=== PATIENT | female | born 1955 | race Caucasian/White ===

== ENCOUNTER 2016-12-25 09:04 | Day surgery (SDC) | payer OTHER ==
[~2016-12-25] VITALS: Ht 157.5 cm; Wt 67.7 kg
[~2016-12-25 09:04] MED LIST: CIPR500T4 PO; HYDR-3498 PO; MAGN296S40 PO; METR500T PO
[2016-12-25 09:42] VITALS: Ht 157.5 cm; Wt 67.7 kg
[2016-12-25] MEDS ORDERED: OMEG300C3 PO (09:49)
[2016-12-25] MEDS ORDERED: CHOL100062 PO (09:49)
[2016-12-25 10:03] VITALS: BP 115/56; PULSE 73; RESP 16
[2016-12-25] MEDS ORDERED: FENTAnyl 50 MCG/ML VIAL ONE (11:09)
[2016-12-25] MEDS ORDERED: MIDAZOLAM 1 MG/ML 2 ML INJ ONE ×2 (11:09)
[2016-12-25 11:32] VITALS: BP 92/56; PULSE 59; RESP 10
--- NOTE | 2016-12-25 13:47 | GILP ---
DATE OF PROCEDURE: NAME OF PROCEDURE: Colonoscopy. SURGEON: Gil Porter MD PREOPERATIVE DIAGNOSIS: Screening colonoscopy. POSTOPERATIVE DIAGNOSES: 1. Colonoscopy all the way to the cecum. 2. Diverticulosis of the colon. 3. Internal hemorrhoids. 4. No colon neoplasm was identified. INDICATION FOR THE PROCEDURE: Ms. Debbi Seay is a 61-year-old female patient who was scheduled for screening colonoscopy. The procedure and possible complications are well explained to the patient, she understood and conse nted to the procedure. DESCRIPTION OF PROCEDURE: Under the influence of fentanyl and Versed, the colonoscope was carefully introduced in the rectum and under direct vision, it was advanced all the way to the cecum. FINDINGS: The patient had diverticulosis of the colon. She also had internal hemorrhoids. No colo n neoplasm was identified. She tolerated the procedure very well and there was no complication from the procedure. At the end of the procedures, she was awake with stable vital signs and she was discharged home to the care of her family. IMPRESSION: 1. Colonoscopy all the way to the cecum. 2. Diverticulosis of the colon. 3. Internal hemorrhoids. PLAN: 1. Linzess 145 mcg p.o. every morning before breakfast. 2. Next screening colonoscopy in 10 years. Dictated By: GIL SESAY/FINA Conf#: [id number] DID#: [id number]
== END 2016-12-25 12:16 | disposition home or self-care (01) ==
LOC: GIL 09:04
PROVIDERS: ATTEND Internal Medicine Gastroenterology
DX: Z12.11 Encounter for screening for malignant neoplasm of colon (principal); K57.30 Diverticulosis of large intestine without perforation or abscess without bleeding; K64.8 Other hemorrhoids
CPT/HCPCS: 45378; J2250; J3010; Z7610